=== PATIENT | female | born 1940 ===

== ENCOUNTER 2018-03-06 14:45 | Inpatient (IN) | payer OTHER ==
[~2018-03-06] VITALS: Ht 129.5 cm; Wt 43.5 kg
[2018-03-10] MEDS ORDERED: SIMVASTATIN80 MG PO (11:11)
[2018-03-10] MEDS ORDERED: TOPROL XL50 M1 PO (11:11)
[2018-03-10] MEDS ORDERED: ASA81 MG PO (11:11)
[2018-03-10] MEDS ORDERED: PLAVIX75 MG PO (11:12)
[2018-05-05] MEDS ORDERED: LOPRESSOR HCT1 EACH PO (10:42)
[2018-05-15] MEDS ORDERED: BACTRIM DS TAB1 EACH PO (08:16)
[2018-05-15] MEDS ORDERED: INTEGRA PLUS C1 EACH PO (08:16)
[2018-05-15] MEDS ORDERED: OXYC1TAB9 PO (08:16)
[2018-05-15] MEDS ORDERED: XARELTO10 MG PO (08:16)
== END 2018-05-15 18:09 | DRG 467 ==
LOC: SURH 03-10 14:45 → O/R 05-12 11:40 → SURH 05-12 13:00
PROVIDERS: Orthopaedic Surgery Sports Medicine
PROC: 0SHC08Z Insertion of Spacer into Right Knee Joint, Open Approach (ICD-10-PCS; 2018-05-12)
PROC: 0SWC0JZ Revision of Synthetic Substitute in Right Knee Joint, Open Approach (ICD-10-PCS; principal; 2018-05-12 13:00)
DX: T84.89XA Other specified complication of internal orthopedic prosthetic devices, implants and grafts, initial encounter (principal); D62 Acute posthemorrhagic anemia; T84.022A Instability of internal right knee prosthesis, initial encounter; I11.9 Hypertensive heart disease without heart failure; I25.10 Atherosclerotic heart disease of native coronary artery without angina pectoris; Z95.1 Presence of aortocoronary bypass graft; Y79.8 Miscellaneous orthopedic devices associated with adverse incidents, not elsewhere classified; Y92.89 Other specified places as the place of occurrence of the external cause